=== PATIENT | male | born 1970 | race American Indian/Alaskan Native ===

== ENCOUNTER 2018-06-07 18:58 | Inpatient (IN) | payer MEDICAID, OTHER ==
[2018-06-07 18:58] VITALS: BMI 26.8
--- NOTE | 2018-06-07 20:06 | C.PDOC ---
History Of Present Illness Patient is a 47 year old male who was prescreened and presents to the ED for alcohol and heroin detox. Patient admits to using heroin every day and alcohol every other day. He states his last heroin use was this morning and alcohol use was last night. He denies any SI/HI, hallucinations, CP, SOB, nausea, vomiting, diarrhea, or abdominal pain. Time Seen by Provider: 06/07/18 19:52 Chief Complaint (Nursing): Substance Abuse History Per: Patient History/Exam Limitations: no limitations Current Symptoms Are (Timing): Still Present Suicide/Self Injury Attempted (Context): None Modifying Factor(s): Alcohol, Other (heroin ) Associated Symptoms: denies: Suicidal Thoughts, Suicidal Plan, Other (homicidal ideation, hallucinations, SOB, CP) Recent travel outside of the [place]: No Additional History Per: Patient Past Medical History Reviewed: Historical Data, Nursing Documentation, Vital Signs Vital Signs: Last Vital Signs Temp 97.9 F 06/07/18 19:27 Pulse 80 06/07/18 19:27 Resp 20 06/07/18 19:27 BP 121/85 06/07/18 19:27 Pulse Ox 99 06/07/18 19:27 - Medical History PMH: No Chronic Diseases Denies: Anxiety, Depression, Chronic Kidney Disease Surgical History: No Surg Hx - [facility] Procedures INJECT/INFUSE NEC (10/18/12) Family History: States: No Known Family Hx - Social History Hx Tobacco Use: Yes Hx Alcohol Use: Yes Hx Substance Use: Yes - Immunization History Hx Tetanus Toxoid Vaccination: No Hx Influenza Vaccination: No Hx Pneumococcal Vaccination: No Review Of Systems Constitutional: Negative for: Fever Cardiovascular: Negative for: Chest Pain Respiratory: Negative for: Shortness of Breath Gastrointestinal: Negative for: Nausea, Vomiting, Abdominal Pain, Diarrhea Psych: Negative for: Suicidal ideation, Other (homicidal ideation, hallucinations ) Physical Exam - Physical Exam Appears: Non-toxic, No Acute Distress Skin: Normal Color, Warm, Dry Head: Atraumatic, Normacephalic Oral Mucosa: Moist Neck: Normal, Supple Chest: Symmetrical, No Deformity Cardiovascular: Rhythm Regular, No Murmur Respiratory: Normal Breath Sounds, No Rales, No Rhonchi, No Wheezing Gastrointestinal/Abdominal: Soft, No Tenderness, No Guarding, No Rebound Extremity: Normal ROM Pulses: Left Dorsalis Pedis: Normal, Right Dorsalis Pedis: Normal Neurological/Psych: Oriented x3 ED Course And Treatment - Laboratory Results Result Diagrams: 06/07/18 19:53 06/07/18 19:53 O2 Sat by Pulse Oximetry: 99 (on RA) Pulse Ox Interpretation: Normal Medical Decision Making Medical Decision Making: Plan: Bloodwork and Urinalysis ordered and reviewed. 21:00. Patient has been medically cleared. Disposition Counseled Patient/Family Regarding: Studies Performed, Diagnosis - Disposition Disposition: HOSPITALIZED Disposition Time: 23:09 Condition: STABLE - Clinical Impression Clinical Impression: Major depression, Polysubstance abuse - Scribe Statement The provider has reviewed the documentation as recorded by the Bestibyaa Lovelace All medical record entries made by the Scribe were at my direction and pe rsonally dictated by me. I have reviewed the chart and agree that the record accurately reflects my personal performance of the history, physical exam, medical decision making, and the department course for this patient. I have also personally directed, reviewed, and agree with the discharge instructions and disposition.
[2018-06-07 20:10] LABS: EOS # 0.1 K/uL (0.0-0.7); EOS % 1.8 % (0.0-4.0); HEMOGLOBIN 13.9 g/dL (12.0-18.0); LYMPH # 1.4 K/uL (1.0-4.3); LYMPH % 32.9 % (20.0-40.0); MEAN CORPUSCULAR HEMOGLOBIN 29.1 pg (27.0-31.0); MEAN CORPUSCULAR HGB CONC 33.1 g/dL (33.0-37.0); MEAN PLATELET VOLUME 9.6 fL (7.2-11.7); MONO # 0.3 K/uL (0.0-0.8); MONO % 6.4 % (0.0-10.0); NEUT # 2.5 K/uL (1.8-7.0); NEUT % 57.9 % (50.0-75.0); NRBC % 0.1 % (0.0-2.0); RBC 4.77 Mil/uL (4.40-5.90); RED CELL DISTRIBUTION WIDTH 13.8 % (11.5-14.5); SQUAMOUS EPITHIAL < 1 /hpf (0-5); URINE BACTERIA RARE (<OCC); URINE BILIRUBIN NEGATIVE (NEGATIVE); URINE BLOOD NEGATIVE (NEGATIVE); URINE CLARITY Clear (Clear); URINE COLOR Yellow (YELLOW); URINE GLUCOSE (UA) NORMAL (Normal); URINE LEUKOCYTE ESTERASE NEG Leu/uL (Negative); URINE PROTEIN 1+ mg/dL (NEGATIVE); WHITE BLOOD COUNT 4.3 K/uL (4.8-10.8)
[2018-06-07 20:20] LABS: ALB/GLOB RATIO 1.8 (1.0-2.1); ALBUMIN 4.8 g/dL (3.5-5.0); ALT/SGPT 26 U/L (21-72); AST/SGOT 31 U/L (17-59); BLOOD UREA NITROGEN 12 mg/dL (9-20); CALCIUM 8.8 mg/dl (8.6-10.4); GFR NON-AFRICAN AMERICAN > 60
[2018-06-07 20:56] LABS: BARBITURATES, UR NEGATIVE (NEGATIVE); BENZODIAZEPINES, UR NEGATIVE (NEGATIVE); PHENCYCLIDINE, UR NEGATIVE (NEGATIVE)
[2018-06-07 20:57] LABS: OPIATES, UR POSITIVE (NEGATIVE)
--- NOTE | 2018-06-08 02:50 | PCM.BM ---
<Timur Ambrocio - Last Filed: 06/08/18 02:48> Treatment Plan Problems - Problems identified on initial assessmt Denial Date Initiated: 06/08/18 Time Initiated: 02:48 Assessment reference: NA Status: Active Defensive Coping Date Initiated: 06/08/18 Time Initiated: 02:49 Assessment reference: NA Status: Active Low Motivation To Change Date Initiated: 06/08/18 Time Initiated: 02:49 Assessment reference: NA Status: Active Treatment assets and liabiliti Patient Assests: cooperative, negotiates basic needs, cognitively intact Patient Liabilities: dietary restrictions - Milieu Protocol Maintain good personal hygiene: daily Encourage regular showers, daily Remind patient to perform daily oral care, daily Assist patient to perform ADL's Maintain personal safety: every shift Educate patient to report safety concerns to staff, every shift Monitor environment for contraband/sharps Medication safety: Monitor for expected outcome, potential side effects: every shift, Assess barriers to learning: every shift, Assess readiness for medication education: every shift <Escobar Christiansen - Last Filed: 06/09/18 10:49> - Diagnosis (1) Opioid use disorder, severe, dependence Status: Acute Interventions: 06/09/18 10:49 * Assess 7x/week regarding severity of withdrawal * Educate regarding risks, benefits, side effects and alternatives of m edications * Use Motivational Interviewing for abstinence * Use CBT for relapse prevention * Medication management for withdrawal symptoms * Encourage medication assisted treatment * <Susannah Segundo - Last Filed: 06/09/18 11:48> Family Contact Family involvement: Famliy/SO not involved - Goals for Treatment Patient goals for treatment: Complete detox and transition to intensive outpatient therapy program and methadone maintenance.
--- NOTE | 2018-06-08 10:02 | PCM.PSYCH ---
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 He presents to the detox unit for heroin withdrawal. Patient states that he is tired of doing drugs and wants to be clean. He admits to using 10 bags of heroin, intranasally, for the past 2.5 months since he relapsed. He has been using heroin for the past 10 years, on and off. His longest sobriety was 1 year after leaving [facility] last year. This is his second time in detox. Patient states that he also drinks alcohol, smokes marijuana, and smokes crack cocaine. ALcohol varies - denies seizures, DTs. Patient states that he is currently depressed and wants to feel better sooner than later. He states that he feels leg pain, abdominal pain, and just generally sick. He denies any suicidal or homicidal ideation, hallucinations, and paranoia. Past Psychiatric History: depression, suicidal attempt in 1988 Familial Psych History: none Trauma Hx: given alcohol at age 4 Legal History: Sentenced to 5 years, released in 2016. PMHx: [place] palsy, herniated disc, still has pain and has difficulty ambulating , has "bad" RA too PSHx: none Current Medications: Active Medications Generic Name Dose Route Start Last Admin Trade Name Freq PRN Reason Stop Dose Admin Clonidine HCl 0.1 mg 06/08/18 01:18 06/08/18 05:30 Catapres PO 0.1 mg Q6 PRN Administration Symptoms of alcohol withdrawl Dicyclomine HCl 10 mg 06/08/18 01:12 Bentyl PO Q6 PRN Muscle spasm Hydroxyzine HCl 25 mg 06/08/18 01:14 06/08/18 05:30 Atarax PO 25 mg Q6 PRN Administration Anxiety Ibuprofen 600 mg 06/08/18 01:12 06/08/18 05:30 Motrin Tab PO 600 mg Q6 PRN Administration Pain, moderate (4-7) Loperamide HCl 2 mg 06/08/18 01:12 Imodium PO Q8 PRN Diarrhea Ondansetron HCl 4 mg 06/08/18 01:12 Zofran Tab PO Q8 PRN Nausea/Vomiting Trazodone HCl 50 mg 06/08/18 01:15 Desyrel PO HS PRN Insomnia Past Psychiatric History - Past Psychiatric History Previous Treatment History: Intensive Outpatient Pertinent Medical Hx (Current Medical&Sleep Prob, Allergies): Allergies Allergy/AdvReac Type Severity Reaction Status Date / Time shellfish derived Allergy Mild ANAPHYLAXIS Verified 06/07/18 19:33 Acetaminophen with Codeine [Tylenol with Codeine No. 3 300 mg-30 mg] 1 tab PO TID PRN 06/07/18 Ibuprofen [Motrin Tab] 800 mg PO TID PRN 06/07/18 Review of Systems - Neurological Neurological: UNREMARKABLE - Psychiatric Psychiatric: Abnormal Sleep Pattern, Anhedonia, Anxiety, Change in Appetite, Depression, Difficulty Concentrating. absent: Hallucinations, Homicidal Ideation, Paranoia, Suicidal Ideation Mental Status Examination - Personal Presentation Personal Presentation: Looks stated age - Affect Affect: Constricted - Motor Activity Motor Activity: Calm - Reliability in Providing Information Reliability in Providing Information: Good - Speech Speech: Organized - Mood Mood: Depressed, Anxious - Formal Thought Process Formal Thought Process: No Impairment - Cognitive Functions Orientation: Person, Place, Situation, Time Sensorium: Alert Attention/Concentration: Easily distracted Estimate of Intelligence: Average Judgement: Intact, as evidence by: Insight regarding need for hospitalization Memory: Recent intact, as evidence by: Ability to recall events of the day, Remote intact, as evidenced by: Abilit to recall sig. life events - Risk Risk: Withdrawal, Diminished functioning - Strength & Assets Inventory Strength & Assets Inventory: Cooperative - Limitations Limitations: Other DSM 5 DX - DSM 5 DSM 5 Diagnosis: Opioid withdrawal Alcohol withdrawal, mild Opioid use disorder- severe Alcohol use disorder- moderate Cocaine use disorder- severe Major depressive d/o - recurrent, moderate JACKIE - Recommended/Plan of Treatment Treatment Recommendations and Plan of Treatment: Taper with subutex Gabapentin for augmentation if needed As needed medications All risks, benefits and alternatives of the meds discussed, and the pt agreed and understood. Attend groups and activities Supportive therapy and psychoeducation VT for abstinence CBT for relapse prevention Encourage MAT Refer to rehab or IOP, and self-help groups Teach healthy lifestyle methods, i.e. diet, exercise, meditation Smoking cessation with VT Nicotine patch if needed 34 min Projected ELOS: 4-5 days Prognosis: good w treatment - Smoking Cessation Smoking Cessation Initiated: Yes
[2018-06-08] MEDS ORDERED: Buprenorphine Hydrochloride 2 mg SL ONE ×2 (12:15→13:45)
[2018-06-09] MEDS: Buprenorphine Hydrochloride 2 mg SL SCH (09:23)
--- NOTE | 2018-06-09 10:48 | PCM.PYCHPN ---
Psychiatric Progress Note - Psychiatric Progress Note Patient seen today, length of contact: 16 min Patient Chief Complaint: "I'm not well yet" Problems Identified/Issues Discussed: The pt is seen, chart reviewed, case discussed with staff. The pt is compliant with medications and reports no side-effects. Symptoms are improving but needs more time to stabilize. Pt attends groups and activities. Support given, psycho-education provided. After care discussed. Medication Change: Yes (detox changes daily) Medical Record Reviewed: Yes Mental Status Examination - Cognitive Function Orientation: Person, Place, Situation, Time Memory: Impaired Attention: WNL Concentration: Poor Association: WNL Fund of Knowledge: WNL - Mood Mood: Depressed, Anxious - Affect Affect: Constricted - Speech Speech: Appropriate - Formal Thought Process Formal Thought Process: No Impairment - Suicidal Ideation Suicidal Ideation: No - Homicidal Ideation Homicidal Ideation: No Goal/Treatment Plan - Goal/Treatment Plan Need for Continued Stay: Discharge may exacerbated symptoms, Severe functional impairment Progress Toward Problem(s) and Goals/Treatment Plan: Taper with subutex continues Gabapentin for augmentation if needed As needed medications All risks, benefits and alternatives of the meds discussed, and the pt agreed and understood. Attend groups and activities Supportive therapy and psychoeducation CA for abstinence CBT for relapse prevention Encourage MAT Refer to rehab or IOP, and self-help groups Teach healthy lifestyle methods, i.e. diet, exercise, meditation Smoking cessation with CA Nicotine patch if needed Estimated Date of D/C: 06/12/18
[2018-06-10] MEDS: Buprenorphine Hydrochloride 2 mg SL SCH (09:19)
--- NOTE | 2018-06-10 11:51 | PCM.PYCHPN ---
Psychiatric Progress Note - Psychiatric Progress Note Patient seen today, length of contact: 17 min Patient Chief Complaint: "I'm doing better but still not good" Problems Identified/Issues Discussed: The pt is seen, chart reviewed, case discussed with staff. Support and psychoeducation given, CBT and KS used briefly No new symptoms reported, improving slowly and needs more time No SEs from medications, risks discussed. After care discussed Medication Change: Yes (detox changes daily) Medical Record Reviewed: Yes Mental Status Examination - Cognitive Function Orientation: Person, Place, Situation, Time Memory: Impaired Attention: WNL Concentration: Poor Association: WNL Fund of Knowledge: WNL - Mood Mood: Depressed, Anxious - Affect Affect: Constricted - Speech Speech: Appropriate - Formal Thought Process Formal Thought Process: No Impairment - Suicidal Ideation Suicidal Ideation: No - Homicidal Ideation Homicidal Ideation: No Goal/Treatment Plan - Goal/Treatment Plan Need for Continued Stay: Discharge may exacerbated symptoms, Severe functional impairment Progress Toward Problem(s) and Goals/Treatment Plan: Taper with subutex continues Gabapentin for augmentation if needed As needed medications All risks, benefits and alternatives of the meds discussed, and the pt agreed and understood. Attend groups and activities Supportive therapy and psychoeducation KS for abstinence CBT for relapse prevention Encourage MAT Refer to rehab or IOP, and self-help groups Teach healthy lifestyle methods, i.e. diet, exercise, meditation Smoking cessation with KS Nicotine patch if needed Estimated Date of D/C: 06/12/18 - Smoking Cessation Smoking Cessation Initiated: Yes
[2018-06-11] MEDS: Buprenorphine Hydrochloride 2 mg SL SCH (09:42)
--- NOTE | 2018-06-11 11:13 | PCM.PYCHPN ---
Psychiatric Progress Note - Psychiatric Progress Note Patient seen today, length of contact: 16 min Patient Chief Complaint: "I'm so so" Problems Identified/Issues Discussed: The pt is seen, chart reviewed, case discussed with staff. The pt is compliant with medications and reports no side-effects. Symptoms are improving but needs more time to stabilize. Pt attends groups and activities. Support given, psycho-education provided. After care discussed. Medication Change: Yes (detox changes daily) Medical Record Reviewed: Yes Mental Status Examination - Cognitive Function Orientation: Person, Place, Situation, Time Memory: Impaired Attention: WNL Concentration: Poor Association: WNL Fund of Knowledge: WNL - Mood Mood: Depressed, Anxious - Affect Affect: Constricted - Speech Speech: Appropriate - Formal Thought Process Formal Thought Process: No Impairment - Suicidal Ideation Suicidal Ideation: No - Homicidal Ideation Homicidal Ideation: No Goal/Treatment Plan - Goal/Treatment Plan Need for Continued Stay: Discharge may exacerbated symptoms, Severe functional impairment Progress Toward Problem(s) and Goals/Treatment Plan: Taper with subutex continues Gabapentin for augmentation if needed As needed medications All risks, benefits and alternatives of the meds discussed, and the pt agreed and understood. Attend groups and activities Supportive therapy and psychoeducation NV for abstinence CBT for relapse prevention Encourage MAT Refer to rehab or IOP, and self-help groups Teach healthy lifestyle methods, i.e. diet, exercise, meditation Smoking cessation with NV Nicotine patch if needed Estimated Date of D/C: 06/12/18
[2018-06-11 21:06] VITALS: RESP 18
[2018-06-12] MEDS: Buprenorphine Hydrochloride 2 mg SL SCH (09:21)
[2018-06-12 10:02] VITALS: BP 124/84; PULSE 82; TEMP 98.2; O2SAT 100
--- NOTE | 2018-06-12 17:04 | PCM.PYCHDC ---
Mental Status Examination - Mental Status Examination Orientation: Person, Place, Situation, Time Memory: Intact Mood: Neutral Affect: Other (Appropriate) Speech: Appropriate Attention: WNL Concentration: WNL Association: WNL Fund of Knowledge: WNL Formal Thought Process: No Impairment Description of patient's judgement and insight: Fair Psychotic Thoughts and Behaviors: None Suicidal Ideation: No Current Homicidal Ideation?: No Discharge Summary - Discharge Note Reason for Hospitalization: Opioid withdrawal Alcohol withdrawal, mild Opioid use disorder- severe Alcohol use disorder- moderate Cocaine use disorder- severe Major depressive d/o - recurrent, moderate JACKIE Laboratory Data: Reviewed Consultations:: List each consultation separately and include: 1. Reason for request. 2. Findings. 3. Follow-up Summary of Hospital Course include:: 1. Description of specific treatment plan utilized for patients during their course of treatmen. 2. Summarize the time- course for resolution of acute symptoms and/or regressed behaviors. 3. Describe issues identified and worked on during hospitalization. 4. Describe medication utilized. 5. Describe medical problems identified and treated. 6. 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 He presents to the detox unit for heroin withdrawal. Patient states that he is tired of doing drugs and wants to be clean. He admits to using 10 bags of heroin, intranasally, for the past 2.5 months since he relapsed. He has been using heroin for the past 10 years, on and off. His longest sobriety was 1 year after leaving [facility] last year. This is his second time in detox. Patient states that he also drinks alcohol, smokes marijuana, and smokes crack cocaine. ALcohol varies - denies seizures, DTs. Patient states that he is currently depressed and wants to feel better sooner than later. He states that he feels leg pain, abdominal pain, and just generally sick. He denies any suicidal or homicidal ideation, hallucinations, and paranoia. Past Psychiatric History: depression, suicidal attempt in 1988 Familial Psych History: none Trauma Hx: given alcohol at age 4 Legal History: Sentenced to 5 years, released in 2016. PMHx: [place] palsy, herniated disc, still has pain and has difficulty ambulating, has "bad" RA too PSHx: none During his stay in the hospital patient was treated with Subutex taper for opioid withdrawal symptoms and other PRN medications. Patient was also attending groups and other activities on the unit. With above treatment, patient started feeling better. Today patient was stable, had no withdrawal symptoms and was ready for discharge from the hospital. At the time of evaluation and discharge, patient was awake, alert and oriented x3, had no delusions, no auditory or visual hallucinations, no suicidal ideations or homicidal ideations. Patient was discharged in a stable condition. - Final Diagnosis (DSM 5) Condition upon Discharge: STABLE Disposition: HOME/ ROUTINE Prescriptions/Medication Reconciliation: Mirtazapine [Remeron] 15 mg PO HS #30 tab traZODone [Desyrel] 100 mg PO HS PRN #30 tab PRN Reason: Insomnia - Smoking Cessation Smoking Cessation Medication prescribed: Yes - Antipsychotic Medications Pt discharged on 2 or more routine antipsychotic medications: No
== END 2018-06-12 09:50 | disposition home or self-care (01) | DRG 745 ==
LOC: C.ER 18:58 → C.9E 23:11 → C.7D 06-08 01:09
PROVIDERS: ADMIT Psychiatry & Neurology Psychiatry; ATTEND Psychiatry & Neurology Psychiatry
PROC: HZ2ZZZZ Detoxification Services for Substance Abuse Treatment (ICD-10-PCS; principal; 2018-06-07)
DX: F10.239 Alcohol dependence with withdrawal, unspecified (principal); F11.23 Opioid dependence with withdrawal; F14.20 Cocaine dependence, uncomplicated; Z87.891 Personal history of nicotine dependence; F33.9 Major depressive disorder, recurrent, unspecified